=== PATIENT | female | born 1960 | race African-American/Black ===

== ENCOUNTER 2016-11-08 15:34 | Observation (INO) | payer OTHER ==
[2016-11-08] MEDS ORDERED: NORMAL SALINE 1000 ML 1,000 ML IV ONE ×2 (16:26→19:22)
--- NOTE | 2016-11-08 16:29 | ER Document Report ---
ED Medical Screen (RME) - General Chief Complaint: Chest Pain Stated Complaint: CHEST PAIN, SHORTNESS OF BREATH Time Seen by Provider: 11/08/16 16:26 Mode of Arrival: Wheelchair Information source: Patient TRAVEL OUTSIDE OF THE [place] IN LAST 30 DAYS: No - HPI Patient complains to provider of: CP, elevated BS Onset: This morning - pt with h/o IDDM and HTN with elevated BS (over 500 earlier today) and CP earlier today. Has taken ASA already - Related Data Allergies/Adverse Reactions: Penicillins Allergy (Severe, Verified 11/08/16 16:01) shock Past Medical History - Past Medical History Cardiac Medical History: Reports: Hx Hypertension Denies: Hx Coronary Artery Disease, Hx Heart Attack Pulmonary Medical History: Denies: Hx Asthma, Hx Bronchitis, Hx COPD, Hx Pneumonia Neurological Medical History: Denies: Hx Cerebrovascular Accident, Hx Seizures Endocrine Medical History: Reports: Hx Diabetes Mellitus Type 2 Renal/ Medical History: Denies: Hx Peritoneal Dialysis Musculoskeltal Medical History: Reports Hx Arthritis Psychiatric Medical History: Reports: Hx Depression, Hx Post Traumatic Stress Disorder Past Surgical History: Reports: Hx Dilation and Curettage, Hx Tubal Ligation. Denies: Hx Pacemaker - Immunizations Hx Diphtheria, Pertussis, Tetanus Vaccination: Yes Physical Exam - Vital signs Vitals: Temp Pulse Resp BP Pulse Ox 98.2 F 79 16 143/83 H 96 11/08/16 15:57 11/08/16 15:57 11/08/16 15:57 11/08/16 15:57 11/08/16 15:57 Course - Vital Signs Vital signs: Temp Pulse Resp BP Pulse Ox 98.2 F 79 16 143/83 H 96 11/08/16 15:57 11/08/16 15:57 11/08/16 15:57 11/08/16 15:57 11/08/16 15:57 - Laboratory Laboratory results interpreted by me: 11/08/16 15:59 POC Glucose 368 H
[2016-11-08 17:17] LABS: ABSOLUTE EOSINOPHILS # (AUTO) 0.1 10^3/uL (0.0-0.6); ABSOLUTE LYMPHOCYTES (AUTO) 3.9 10^3/uL (0.5-4.7); ABSOLUTE MONOCYTES (AUTO) 0.3 10^3/uL (0.1-1.4); ABSOLUTE NEUT (AUTO) 3.2 10^3/uL (1.7-8.2); BASOPHILS % (AUTO) 0.5 % (0-2); EOSINOPHILS % (AUTO) 1.8 % (0-6); HEMATOCRIT 41.2 % (36.0-47.0); HEMOGLOBIN 13.3 g/dL (12.0-15.5); HGB HCT DIFFERENCE -1.3; LYMPHOCYTES % (AUTO) 51.5 % (13-45); MEAN CORPUSCULAR HEMOGLOBIN 27.6 pg (27.0-33.4); MEAN CORPUSCULAR HGB CONC 32.4 g/dL (32.0-36.0); MEAN CORPUSCULAR VOLUME 85 fl (80-97); MONOCYTES % (AUTO) 4.3 % (3-13); RED BLOOD COUNT 4.84 10^6/uL (3.72-5.28); RED CELL DISTRIBUTION WIDTH 12.7 % (11.5-14.0); SEGMENTED NEUTROPHILS % (AUTO) 41.9 % (42-78); WHITE BLOOD COUNT 7.6 10^3/uL (4.0-10.5)
--- NOTE | 2016-11-08 17:19 | RADIOLOGY REPORT (SQ) ---
EXAM DESCRIPTION: CHEST PA/LAT COMPLETED DATE/TIME: 11/08/2016 5:11 pm REASON FOR STUDY: CP/SOB COMPARISON: None. EXAM PARAMETERS: NUMBER OF VIEWS: two views TECHNIQUE: Digital Frontal and Lateral radiographic views of the chest acquired. RADIATION DOSE: NA LIMITATIONS: none FINDINGS: LUNGS AND PLEURA: No opacities, masses or pneumothorax. No pleural effusion. MEDIASTINUM AND HILAR STRUCTURES: No masses or contour abnormalities. HEART AND VASCULAR STRUCTURES: Heart normal size. No evidence for failure. BONES: No acute findings. HARDWARE: None in the chest. OTHER: No other significant finding. IMPRESSION: NO SIGNIFICANT RADIOGRAPHIC FINDING IN THE CHEST. TECHNICAL DOCUMENTATION: JOB ID: [id number]- All Rights Reserved
[2016-11-08 17:34] LABS: ALANINE AMINOTRANSFERASE 43 U/L (9-52); ALBUMIN 4.7 g/dL (3.5-5.0); ALKALINE PHOSPHATASE 144 U/L (38-126); ANION GAP 14 (5-19); ASPARTATE AMINO TRANSFERASE 20 U/L (14-36); BILIRUBIN,DIRECT 0.3 mg/dL (0.0-0.4); BILIRUBIN,TOTAL 0.6 mg/dL (0.2-1.3); BLOOD UREA NITROGEN 16 mg/dL (7-20); CALCIUM 10.3 mg/dL (8.4-10.2); CARBON DIOXIDE 26 mmol/L (22-30); CHLORIDE 97 mmol/L (98-107); CREATINE KINASE 308 U/L (30-135); GLUCOSE 349 mg/dL (75-110); POTASSIUM 4.3 mmol/L (3.6-5.0); SODIUM 136.6 mmol/L (137-145); TOTAL PROTEIN 7.9 g/dL (6.3-8.2)
[2016-11-08 17:46] LABS: CREATINE KINASE MB 4.61 ng/mL (<4.55)
[2016-11-08 17:50] LABS: TROPONIN I < 0.012 ng/mL
[2016-11-08 18:16] LABS: APPEARANCE,URINE CLEAR; BILIRUBIN,URINE NEGATIVE (NEGATIVE); GLUCOSE, URINE >=500 mg/dL (NEGATIVE); KETONES,URINE NEGATIVE (NEGATIVE); LEUKOCYTE ESTERASE,URINE NEGATIVE (NEGATIVE); NITRITE,URINE NEGATIVE (NEGATIVE); PROTEIN,URINE NEGATIVE (NEGATIVE); URINE SPECIFIC GRAVITY 1.037; UROBILINOGEN,URINE NEGATIVE mg/dL (<2.0)
[2016-11-08] MEDS ORDERED: ASPIRIN 81 MG TABLET, CHEWABLE PO ONE (19:22)
--- NOTE | 2016-11-08 19:24 | ER Document Report ---
ED Cardiac - General Chief Complaint: Chest Pain Stated Complaint: CHEST PAIN, SHORTNESS OF BREATH Time Seen by Provider: 11/08/16 16:26 Mode of Arrival: Wheelchair Notes: Patient is a 55-year-old female who comes emergency department for chief complaint of chest pain, she states that last night she had a sharp chest pain that lasted about 15 minutes, today about 2 PM she had a pressure in her chest that lasted for about 15-20 minutes. Both episodes resolved. She reported some nausea earlier but no vomiting, she states that she felt slightly short of breath at the time. All symptoms resolved. She denies cough, fever, abdominal pain. She states her blood sugar was very elevated today, she took 60 units of long-acting insulin prior to arrival. She also takes Januvia p.o. She has an fixing carpenter. Also has history of hypertension. Denies smoking, personal or family history of heart disease, states she attempted a exercise stress test last year but was unable to complete it. TRAVEL OUTSIDE OF THE [place] IN LAST 30 DAYS: No - Related Data Allergies/Adverse Reactions: Penicillins Allergy (Severe, Verified 11/09/16 01:02) shock Past Medical History - General Information source: Patient - Social History Smoking Status: Never Smoker Drug Abuse: None Lives with: Family Family History: Reviewed & Not Pertinent - Past Medical History Cardiac Medical History: Reports: Hx Hypercholesterolemia, Hx Hypertension Denies: Hx Coronary Artery Disease, Hx Heart Attack Pulmonary Medical History: Denies: Hx Asthma, Hx Bronchitis, Hx COPD, Hx Pneumonia Neurological Medical History: Denies: Hx Cerebrovascular Accident, Hx Seizures Endocrine Medical History: Reports: Hx Diabetes Mellitus Type 2 Renal/ Medical History: Denies: Hx Peritoneal Dialysis Musculoskeltal Medical History: Reports Hx Arthritis Psychiatric Medical History: Reports: Hx Depression, Hx Post Traumatic Stress Disorder Past Surgical History: Reports: Hx Dilation and Curettage, Hx Tubal Ligation. Denies: Hx Pacemaker - Immunizations Hx Diphtheria, Pertussis, Tetanus Vaccination: Yes Hx Pneumococcal Vaccination: 12/01/09 Review of Systems - Review of Systems Constitutional: No symptoms reported EENT: No symptoms reported Cardiovascular: See HPI Respiratory: No symptoms reported Gastrointestinal: No symptoms reported Genitourinary: No symptoms reported Female Genitourinary: No symptoms reported Musculoskeletal: No symptoms reported Skin: No symptoms reported Hematologic/Lymphatic: No symptoms reported Neurological/Psychological: No symptoms reported Physical Exam - Vital signs Vitals: Temp Pulse Resp BP Pulse Ox 98.2 F 79 16 143/83 H 96 11/08/16 15:57 11/08/16 15:57 11/08/16 15:57 11/08/16 15:57 11/08/16 15:57 Interpretation: Normal - General General appearance: Appears well, Alert In distress: None - HEENT Head: Normocephalic, Atraumatic Eyes: Normal Pupils: PERRL - Respiratory Respiratory status: No respiratory distress Chest status: Nontender. No: Tender Breath sounds: Normal. No: Decreased air movement Chest palpation: Normal. No: [place] frothy sputum - Cardiovascular Rhythm: Regular. No: Tachycardia Heart sounds: Normal auscultation, S1 appreciated, S2 appreciated Murmur: No - Abdominal Inspection: Normal Distension: No distension Bowel sounds: Normal Tenderness: Nontender Organomegaly: No organomegaly - Back Back: Normal, Nontender. No: Tender - Extremities General upper extremity: Normal inspection, Nontender, Normal color, Normal ROM , Normal temperature General lower extremity: Normal inspection, Nontender, Normal color, Normal ROM , Normal temperature, Normal weight bearing. No: Edema, Shante's sign - Neurological Neuro grossly intact: Yes Cognition: Normal Orientation: AAOx4 Kennedy Coma Scale Eye Opening: Spontaneous Superior Coma Scale Verbal: Oriented Kennedy Coma Scale Motor: Obeys Commands Superior Coma Scale Total: 15 Speech: Normal Motor strength normal: LUE, RUE, LLE, RLE Sensory: Normal - Psychological Associated symptoms: Normal affect, Normal mood - Skin Skin Temperature: Warm Skin Moisture: Dry Skin Color: Normal Course - Re-evaluation Re-evalutation: Patient took 81 mg of aspirin at home, was not given anything else here, will give the remaining 243 mg of aspirin now. EKG shows sinus rhythm at a rate of 75 with no T-wave inversions or ST segment changes in consecutive leads, Machine reads as normal. Chest x-ray unremarkable. CBC unremarkable. Chemistry showing hyperglycemia with no acidosis, normal renal functioning. Giving additional fluids. Urinalysis shows elevated specific gravity consistent with dehydration. Initial troponin negative, CK and CK-MB slightly elevated. Second troponin pending. 11/09/16 Patient has a heart score of 3, however she has already attempted a stress test this year and this was not completed, she has not well controlled diabetes, she has hypertension, she is 55 years old. She also has had recurrent pain over the past 2 days. She is currently pain-free. Discussed with Dr. Wolfe. Discussed with patient, recommended telemetry observation for additional evaluation, patient is in full agreement with this. Discussed with Dr. Salcedo, internal medicine, patient will be admitted to telemetry observation. - Vital Signs Vital signs: Temp Pulse Resp BP Pulse Ox 98.4 F 79 16 142/80 H 97 11/09/16 03:27 11/09/16 03:27 11/09/16 03:27 11/09/16 03:27 11/09/16 03:27 - Laboratory Result Diagrams: 11/08/16 16:58 11/08/16 16:58 Laboratory results interpreted by me: 11/08/16 11/08/16 11/08/16 15:59 16:58 16:58 Seg Neutrophils % 41.9 L Lymphocytes % 51.5 H Sodium 136.6 L Chloride 97 L Glucose 349 H POC Glucose 368 H Calcium 10.3 H Alkaline Phosphatase 144 H Creatine Kinase 308 H CK-MB (CK-2) Urine Glucose (UA) 11/08/16 11/08/16 11/08/16 16:58 16:58 23:17 Seg Neutrophils % Lymphocytes % Sodium Chloride Glucose POC Glucose 375 H Calcium Alkaline Phosphatase Creatine Kinase CK-MB (CK-2) 4.61 H Urine Glucose (UA) >=500 H 11/08/16 23:28 Seg Neutrophils % Lymphocytes % Sodium Chloride Glucose POC Glucose Calcium Alkaline Phosphatase Creatine Kinase 217 H CK-MB (CK-2) Urine Glucose (UA) Discharge - Discharge Clinical Impression: Hyperglycemia Chest pain Qualifiers: Chest pain type: unspecified Qualified Code(s): R07.9 - Chest pain, unspecified Condition: Stable Disposition: ADMITTED OBSERVATION Admitting Provider: Hospitalist Unit Admitted: Telemetry
--- NOTE | 2016-11-08 19:33 | EKG REPORT ---
SEVERITY:- NORMAL ECG - SINUS RHYTHM : Confirmed by: Jed Krishna MD 08-Nov-2016 19:32:19
[2016-11-08] MEDS ORDERED: GLUCAGON,HUMAN RECOMB 1 MG INJ IM PRN (21:22)
[2016-11-08] MEDS ORDERED: DEXTROSE 40% GEL 15 GM TUBE PO PRN ×2 (21:22)
[2016-11-08] MEDS ORDERED: DEXTROSE 50%-WATER 25 GM/50 ML DISP.SYRIN IV PRN ×2 (21:22)
[2016-11-08] MEDS ORDERED: PROMETHAZINE HCL 25 MG TABLET PO PRN (21:22)
[2016-11-08] MEDS ORDERED: ACETAMINOPHEN 325 MG TABLET PO PRN (21:22)
[2016-11-09] MEDS: INSULIN LISPRO 100 UNIT/ML 3 ML VIAL SUBCUT PRN ×3 (00:42→12:30)
[2016-11-09] MEDS ORDERED: NITROGLYCERIN 0.4 MG/TAB 25 TAB/BOTTLE SL PRN (00:59)
[2016-11-09] MEDS ORDERED: ACETAMINOPHEN 325 MG TABLET PO ONE (01:00)
[2016-11-09] MEDS ORDERED: MAG HYDROX/AL HYDROX/SIMETH SUSP 30 ML UDCUP PO ONE (01:00)
--- NOTE | 2016-11-09 01:08 | PDOC H&P ---
History of Present Illness Admission Date/PCP: 11/08/16 21:[address] Aguilar Endocrinology Dr. Almonte Patient complains of: Chest pain History of Present Illness: MACIEJ JACKMAN is a 55 year old -[place] female with underlying hypertension, type I and type 2 diabetes mellitus, hyperlipidemia, mild anxiety and depression, without suicidal or homicidal ideation, arthritis, and posttraumatic stress disorder who presents to the emergency room for evaluation of above complaint. Patient has been discussed with emergency room nurse practitioner who evaluated the patient. Initial onset of chest pain the evening of the seventh. Sharp in nature, substernal, radiating to her back. Nothing in particular made the pain worse. Resolved on its own. Recurrence of the chest pain, now combination of sharp and pressure quality, approximately 2 PM the day of admission. Notation made in the chart that it lasted only 15-20 minutes. However, discussion with patient at bedside revealed that pain had never really completely resolved since the initial onset. Mild nausea but no vomiting. Slight associated shortness of breath. However, no cough, fever or chills. Patient states she had similar episode of chest pain last October when she suffered a TIA. November 01, 2015, she underwent an incomplete exercise treadmill study, apparently due to tachycardia, with what sounds to be a negative nuclear stress test later that same day. Stress test reports have been requested. Basically a negative cardiac history other than hypertension, with no previous myocardial infarction, congestive heart failure, atrial fibrillation or flutter. No history of pulmonary embolus or DVT. No recent long trip with prolonged inactivity, or unusual lower extremity swelling or tenderness. Negative family history of coronary artery disease. Dictation via voice recognition software. Laboratory results are listed in [facility] and are reviewed. X-ray summary results are listed below, with full report(s) reviewed. . EKG 2 reviewed. Social history/personal habits: single. Has children. 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 Social alcohol use. No tobacco or illicit drug use. Allergies/adverse reactions are listed in [facility] and are reviewed. No problems with Rocephin. Home medications initially autopopulated into [facility] may not accurately reflect patient's true medications, dosages, and/or frequencies. biofuels production technician to reconcile medications. Unfortunately, patient not certain of all medications/dosages/frequencies. REVIEW OF SYSTEMS: Constitutional: No fever or chills. Eyes: Wears glasses. ENT: No swallowing problems or complaints. Denies hearing loss. Pulmonary: See history and present illness. Cardiovascular: See history and present illness. Gastrointestinal: See history and present illness. Skin: No current complaints, including rashes. Hematologic: Denies easy bruising. Neurologic: No current complaints, including numbness or tingling. Musculoskeletal: Joint pain from arthritis. Psychiatric: Mild anxiety and depression. No suicidal or homicidal ideation. Endocrine: No current complaints, including polyuria. Genitourinary: No current complaints, including dysuria. PHYSICAL EXAMINATION: Female floor nurse Nano is present. 2 daughters are present; patient approves. 5 feet 1 inches tall. 66.7 kg. BMI 27.8 kg/m. 98. Pulse 79 and regular. Respirations are 16 and unlabored. 96% saturation on room air. Blood pressure 140/83. Slightly overweight otherwise well-nourished well-developed -[place] female appearing approximately her stated age. Pleasant awake alert and cooperative. No obvious distress other than perhaps mildly anxious. Skin is warm and dry. No grossly obvious evidence of rash in areas of skin examined. No subcutaneous nodules palpated. ENT: Hearing grossly normal to normal conversation. Tongue midline on protrusion pink and slightly moist. Eyes: No scleral icterus. Pupils equal and reactive to light at 4 mm. [place] conjunctivae. Neck is supple and nontender to gentle active range of motion and palpation. Midline trachea. No palpable thyroid nodule mass enlargement or tenderness. Lymphatic: No palpable cervical or clavicular nodes. Neck and lymphatic exams limited by patient body habitus. Psychiatric: Reasonable insight into acute and chronic medical issues. Oriented to time location and why here. Lungs: Auscultation reveals clear and equal breath sounds bilaterally. No use of accessory respiratory muscles. Cardiovascular: Heart regular rate and rhythm, without gallop murmur or rub. No carotid or abdominal aortic bruits. No ankle or pedal edema. Palpable dorsalis pedis pulses. Abdomen:soft slightly distended nontender with positive bowel sounds. Unable to adequately evaluate abdomen for masses or organomegaly due to distention. Compression of neither her upper abdomen nor sternum has any effect on her ongoing chest discomfort. Extremities: Feet are warm and dry. No calf tenderness to compression. No grossly obvious visual evidence of calf swelling. Gentle manipulation of lower extremities fails to reveal any obvious evidence of injury or instability to knees hips or ankles. Neurologic: Moves upper extremities grossly normally. Patellar reflexes absent. Absent Babinski. Light touch is intact at feet. Dorsiflexion and plantarflexion of feet 5 / 5 and symmetric. Past Medical History Cardiac Medical History: Reports: Hyperlipidema, Hypertension Denies: Atrial Fibrillation, Congestive Heart Failure, Coronary Artery Disease, DVT, Myocardial Infarction, Pulmonary Embolism Pulmonary Medical History: Denies: Asthma, Bronchitis, Chronic Obstructive Pulmonary Disease (COPD), Pneumonia, Sleep Apnea EENT Medical History: Reports: Eyes - Glasses Denies: Ears, Throat Neurological Medical History: Denies: Seizures Endocrine Medical History: Reports: Diabetes Mellitus Type 1, Diabetes Mellitus Type 2 Denies: Hyperthyroidism, Hypothyroidism Renal/ Medical History: Reports: None GI Medical History: Denies: Cirrhosis, Gastroesophageal Reflux Disease, Hepatitis, Peptic Ulcer Disease Musculoskeltal Medical History: Reports: Arthritis Skin Medical History: Reports: None Psychiatric Medical History: Reports: Depression, General Anxiety Disorder, Post Traumatic Stress Disorder Denies: Alcohol Dependency, Substance Abuse, Tobacco Dependency Hematology: Denies: Anemia Infectious Medical History: Denies: Hepatitis B, Hepatitis C Past Surgical History Past Surgical History: Reports: Tubal Ligation, Other - Mesh bladder repair Social History Information Source: Patient, Emergency Med Personnel, COUNT [facility]CLUDES [facility] Records Smoking Status: Unknown if Ever Smoked Frequency of Alcohol Use: Social Drugs: None - Advance Directive Resuscitation Status: Full Code Surrogate healthcare decision maker:: Daughter Kelly Family History Family History: Reviewed & Not Pertinent Parental Family History Reviewed: Yes - Father with [place]; mother hypertensive, osteoporosis Children Family History Reviewed: Yes - Asthma Sibling(s) Family History Reviewed.: Yes - Brother hypertensive, and end-stage renal disease Medication/Allergy Home Medications: Aspirin [Ecotrin 81 mg EC Tablet] 81 mg PO DAILY tabec 11/09/16 Cyanocobalamin (Vitamin B-12) [B-12] 1,000 mcg PO DAILY 11/09/16 Insulin Glargine/Lixisenatide [Soliqua 100 Unit-33 Mcg/ml Pen] 60 unit IM DAILY 11/09/16 Losartan Potassium [Cozaar 25 mg Tablet] 25 mg PO DAILY 11/09/16 Multivitamin/Iron/Folic Acid [Centrum Women Tablet] 1 each PO DAILY 11/09/16 Rosuvastatin Calcium [Crestor 20 mg Tablet] 20 mg PO DAILY 11/09/16 Sitagliptin Phosphate [Januvia] 100 mg PO DAILY 11/09/16 Vitamin E Acetate [Vitamin E] 800 unit PO DAILY 11/09/16 Zolpidem Tartrate [Ambien 5 mg Tablet] 2.5 mg PO HSP PRN 11/09/16 Allergies/Adverse Reactions: Penicillins Allergy (Severe, Verified 11/09/16 01:02) shock Physical Exam Vital Signs: Temp Pulse Resp BP Pulse Ox 98.0 F 78 16 140/83 H 96 11/09/16 00:09 11/09/16 00:09 11/09/16 00:09 11/09/16 00:09 11/09/16 00:09 Results Laboratory Results: 11/08/16 11/08/16 23:28 23:28 Creatine Kinase 217 H Troponin I < 0.012 Impressions: Chest X-Ray 11/08/16 16:26 IMPRESSION: NO SIGNIFICANT RADIOGRAPHIC FINDING IN THE CHEST. Assessment & Plan - Diagnosis (1) HTN (hypertension) Qualifiers: Hypertension type: essential hypertension Qualified Code(s): I10 - Essential (primary) hypertension Is this a current diagnosis for this admission?: Yes Plan: Resume home medications as appropriate once these have been determined and reviewed. (2) HLD (hyperlipidemia) Qualifiers: Hyperlipidemia type: unspecified Qualified Code(s): E78.5 - Hyperlipidemia , unspecified Is this a current diagnosis for this admission?: Yes Plan: Resume home medications as appropriate once these have been determined and reviewed. (3) Diabetes mellitus type 2 in nonobese Is this a current diagnosis for this admission?: Yes (4) Diabetes mellitus type 1 Qualifiers: Diabetes mellitus complication status: without complication Qualified Code( s): E10.9 - Type 1 diabetes mellitus without complications Is this a current diagnosis for this admission?: Yes Plan: Diabetic cardiac diet. Accu-Cheks with appropriate sliding scale coverage. Resume home medications as appropriate once these have been determined and reviewed. (5) Chest pain Qualifiers: Chest pain type: unspecified Qualified Code(s): R07.9 - Chest pain, unspecified Is this a current diagnosis for this admission?: Yes Plan: Patient will be placed in observation bed under chest pain protocol. Patient understands to notify staff should chest pain resolve and recur, or if the character or intensity of the discomfort changes. Serial troponin . Repeat EKG. lipid panel. D dimer. I have strongly encouraged patient to be careful getting out of bed, to avoid a fall with injury. Knee high SCDs for DVT prophylaxis, along with subcu Lovenox. Impression and plans were discussed with patient and 2 daughters, all of whom concur. Discussed with day hospitalist. Time spent in evaluation and management of patient: 64 minutes. - Time Time Spent: 50 to 70 Minutes Anticipated discharge: Home Within: within 24 hours
[2016-11-09 06:07] LABS: CHOLESTEROL 165.79 mg/dL (0-200); Direct HDL 41 mg/dL (>40); TRIGLYCERIDES 234 mg/dL (<150)
[2016-11-09 06:18] LABS: DIRECT LDL 91 mg/dL (<100)
[2016-11-09 06:23] LABS: VLDL CHOLESTEROL 46.8 mg/dL (10-31)
--- NOTE | 2016-11-09 06:52 | EKG REPORT ---
SEVERITY:- BORDERLINE ECG - SINUS RHYTHM BORDERLINE T WAVE ABNORMALITIES : Confirmed by: Jed Krishna MD 09-Nov-2016 06:51:55
--- NOTE | 2016-11-09 06:53 | EKG REPORT ---
SEVERITY:- NORMAL ECG - SINUS RHYTHM : Confirmed by: Jed Krishna MD 09-Nov-2016 06:52:03
[2016-11-09] MEDS ORDERED: DOCUSATE SODIUM 100 MG CAPSULE PO SCH (10:00)
[2016-11-09] MEDS ORDERED: ENOXAPARIN SODIUM INJ 40 MG/0.4 ML DISP.SYRIN SUBCUT SCH (10:00)
[2016-11-09] MEDS ORDERED: ASPIRIN 81 MG TABLET, ENT COATED PO SCH (10:00)
[2016-11-09 12:46] VITALS: BP 140/83
--- NOTE | 2016-11-09 14:18 | DISCHARGE SUMMARY E ---
Discharge Summary NAME: MACIEJ JACKMAN : 1960 AGE: 55Y ADMITTED: 11/09/2016 DISCHARGED: 11/09/2016 CODE STATUS: FULL CODE. PRIMARY CARE PROVIDER: Maurice Davis OUTPATIENT DELIVERY REP: Dr. Briggs DISCHARGE DIAGNOSES: 1. Chest pain which has resolved. 2. Hypertriglyceridemia. 3. Diabetes mellitus type 2. 4. Hypertension. 5. Hyperlipidemia. DISCHARGE MEDICATIONS: 1. Aspirin 81 mg p.o. daily. 2. Vitamin B12 at 1000 mcg p.o. daily. 3. Soliqua 100-unit pen 60 units IM daily. 4. Cozaar 25 mg p.o. daily. 5. Centrum Women 1 tablet p.o. daily. 6. Crestor 20 mg p.o. daily. 7. Januvia 100 mg p.o. daily. 8. Vitamin E 800 international units p.o. daily. 9. Ambien 2.5 mg p.o. at hour of sleep. DIET: Heart healthy diabetic as tolerated. ACTIVITY: As tolerated. DIAGNOSTICS: Lab values are as follow: Hematology obtained on 11/08/2016: WBCs are 7.6, hemoglobin is 13.3, hematocrit is 41.2, platelet count is 391,000. Coagulation obtained on 11/09/2016: D-dimer is 0.30. Chemistry obtained on 11/09/2016 reveals sodium of 136, potassium 4.3, chloride 97, carbon dioxide 26, BUN 16, creatinine is 0.70, glucose is 349, calcium is 10.3, bilirubin is 0.6, AST 20, ALT is 43, alk phos 144, CK 308, CK-MB is 4.61, troponin is 0.012, total protein 7.9, albumin 4.7, triglycerides are 234, cholesterol is 165, LDL 91, VLDL is 46, HDL is 41. Urinalysis obtained on 11/08/2016: Color yellow, appearance clear, pH 6.0, specific gravity 1.037, protein negative, glucose 500, ketones negative, occult blood negative, nitrate negative, bilirubin negative, urobilinogen negative, leukocyte esterase negative, WBC 3, RBC 1, bacteria trace, epithelial squamous cells 1, mucous rare, ascorbic acid negative. Chest x-ray obtained on 11/08/2016 reveals no acute radiographic finding of the chest. EKG obtained on 11/08/2016 reveals sinus rhythm. EKG obtained on 11/09/2016 reveals sinus rhythm. PHYSICAL EXAMINATION: GENERAL: On examination, the patient is a well-developed, well-nourished, 55-year-old -[place] female who is awake, alert, and oriented to person, place, time, and situation. She is verbal, conversational, ambulatory, and does not appear to be in any acute distress. VITAL SIGNS: Temperature 98.4, pulse 75, respirations 16, blood pressure 141/81, oxygen saturation is 94% on room air. SKIN: Warm and dry. No rash. Not diaphoretic. HEENT: Pupils equal, round, reactive to light and accommodation. Conjunctivae are pink. There is no JVP. CARDIOVASCULAR: Heart is regular with no murmur or rub. CHEST: Clear, symmetrical, unlabored. ABDOMEN: Soft, nontender, nondistended. BACK: No CVA tenderness or sacral edema. EXTREMITIES: No clubbing, cyanosis, or edema. HISTORY OF PRESENT ILLNESS: The patient is a 55-year-old -Hung[place] female with a past medical history of hypertension and hyperlipidemia. The patient presented to the emergency department with a chief complaint of chest pain. The patient noted initial onset of chest pain the evening of the seventh. It was sharp in nature, substernal, and radiated to her back. Nothing in particular made the pain worse or better and it resolved on its own. The patient did have recurrence of chest pain in combination with a sharp pressure like quality around 1400 hours the day of admission. Notation was made in the chart that it lasted only about 10-15 minutes; however, the patient also stated that this had never really completely resolved. The patient admitted to mild nausea but no vomiting with some slight shortness of breath but no cough, fevers, or chills. The patient had a similar episode last year. The patient underwent what appears to be a negative stress test last year with her rod puller, Dr. Briggs. The patient's initial set of cardiac enzymes were found to be unremarkable. EKG revealed no changes and the patient was referred to the hospitalist for observation and management. HOSPITAL COURSE: The patient was observed in continuous telemetry unit. Serial cardiac enzymes were obtained, all of which were non-suggestive. The patient did have repeat EKG and findings did not reveal any changes. The patient had no events on the panel monitor and no replication of symptoms. The patient's D-dimer was unremarkable and the patient is okay with discharge with the agreeance of following up with her rod puller within the week. Time spent on this discharge including assessment, plan, physical examination, patient education, and review of previous and current records is 35 minutes. DICTATING PHYSICIAN: PAMELA BRADFORD NP [id number] PHY#: [id number] ID: [id number] JOB#: [id number] ACCT: [id number] cc:PAMELA BRADFORD NP, FRANCIS M.D. >
== END 2016-11-09 13:51 | disposition home or self-care (01) ==
LOC: ER 15:34 → EH 21:20 → UNDOADMOB 21:20 → EH 23:11 → 5 23:11 → EH 11-09 00:43 → UNDOADMOB 11-09 01:39 → 5 11-09 01:39
PROVIDERS: ADMIT Family Medicine; ATTEND Family Medicine
DX: R07.9 Chest pain, unspecified (principal); E78.1 Pure hyperglyceridemia; E11.9 Type 2 diabetes mellitus without complications; I10 Essential (primary) hypertension; E78.5 Hyperlipidemia, unspecified; F41.9 Anxiety disorder, unspecified; F32.9 Major depressive disorder, single episode, unspecified; F43.10 Post-traumatic stress disorder, unspecified; R06.02 Shortness of breath; Z86.73 Personal history of transient ischemic attack (TIA), and cerebral infarction without residual deficits; Z79.84 Long term (current) use of oral hypoglycemic drugs; Z79.82 Long term (current) use of aspirin
CPT/HCPCS: 93005 ×2; 99285; 96360; 36415 ×2; 82553; 82962 ×2; 82550; 85025; 80053; 81001; 84484 ×2; 85379; 80061; 71020; 93010 ×2; G0378 ×2; J1815; J3490; J7030

== ENCOUNTER 2018-05-21 15:08 | Emergency (ER) | payer BC, OTHER ==
[2018-05-21] MEDS ORDERED: ADENOSINE INJ/PF 6 MG/2 ML SDV IV ONE (15:23)
[2018-05-21] MEDS ORDERED: ASPIRIN 81 MG TABLET, CHEWABLE PO ONE (15:28)
[2018-05-21] MEDS ORDERED: NORMAL SALINE 1000 ML 1,000 ML IV ONE ×2 (15:31→16:48)
--- NOTE | 2018-05-21 15:33 | ER Document Report ---
ED Cardiac - General Chief Complaint: Shortness Of Breath Stated Complaint: CHEST PAIN Time Seen by Provider: 05/21/18 15:30 Primary Care Provider: SAMUEL WASSERMAN DO [NO LOCAL MD] - Follow up as needed Mode of Arrival: Stretcher Information source: Patient TRAVEL OUTSIDE OF THE [place] IN LAST 30 DAYS: No - HPI Patient complains to provider of: Chest pain, Palpitations Was the onset of pain: Sudden Is the pain a: New problem Chest pain location: Substernal Quality of pain: Pressure Severity now: Severe Severity at worst: Severe Pain level currently: 5 Chest pain precipitating factors: At Rest Cardiac risk factors: Diabetes, Hypertension Positive cardiac history: No Associated symptoms: Palpitations, Shortness of breath Exacerbated by: Denies Relieved by: Nothing Similar symptoms previously: No Recently seen / treated by doctor: No Notes: Patient is a 57-year-old female with a history of hypertension and diabetes presenting to the emergency room via EMS for complaints of chest pain with shortness of breath and rapid heart rate, patient noted to be in SVT on arrival, nursing staff called me to the room immediately, an IV was placed and EKG was performed to confirm SVT and adenosine 6 mg was given, patient denies a history of SVT previously, she reports the rest of the day was relatively normal until this started approximately 30 minutes prior to coming to the emergency department, she denies any nausea or vomiting she denies any fever or chills, no increased stimulant or caffeine consumption - Related Data Allergies/Adverse Reactions: Penicillins Allergy (Severe, Verified 11/09/16 01:02) shock Past Medical History - General Information source: Patient - Social History Smoking Status: Never Smoker Family History: Reviewed & Not Pertinent - Past Medical History Cardiac Medical History: Reports: Hx Hypercholesterolemia, Hx Hypertension Denies: Hx Atrial Fibrillation, Hx Congestive Heart Failure, Hx Coronary Artery Disease, Hx DVT, Hx Heart Attack, Hx Pulmonary Embolism Pulmonary Medical History: Denies: Hx Asthma, Hx Bronchitis, Hx COPD, Hx Pneumonia, Hx Sleep Apnea Neurological Medical History: Denies: Hx Cerebrovascular Accident, Hx Seizures Endocrine Medical History: Reports: Hx Diabetes Mellitus Type 1, Hx Diabetes Mellitus Type 2. Denies: Hx Hyperthyroidism, Hx Hypothyroidism Renal/ Medical History: Denies: Hx Peritoneal Dialysis GI Medical History: Denies: Hx Cirrhosis, Hx Gastroesophageal Reflux Disease, Hx Hepatitis Musculoskeletal Medical History: Reports Hx Arthritis Psychiatric Medical History: Reports: Hx Depression, Hx Post Traumatic Stress Disorder Infectious Medical History: Denies: Hx Hepatitis Past Surgical History: Reports: Hx Dilation and Curettage, Hx Tubal Ligation, Other - Mesh bladder repair. Denies: Hx Pacemaker - Immunizations Hx Diphtheria, Pertussis, Tetanus Vaccination: Yes Hx Pneumococcal Vaccination: 12/01/09 Review of Systems - Review of Systems Constitutional: No symptoms reported EENT: No symptoms reported Cardiovascular: See HPI Respiratory: No symptoms reported Gastrointestinal: No symptoms reported Genitourinary: No symptoms reported Female Genitourinary: No symptoms reported Musculoskeletal: No symptoms reported Skin: No symptoms reported Hematologic/Lymphatic: No symptoms reported Neurological/Psychological: No symptoms reported -: Yes All other systems reviewed and negative Physical Exam - Vital signs Vitals: Pulse Ox 100 05/21/18 15:19 Interpretation: Tachycardic - General General appearance: Alert In distress: Moderate - HEENT Head: Normocephalic, Atraumatic Eyes: Normal Pupils: PERRL - Respiratory Respiratory status: No respiratory distress Chest status: Nontender Breath sounds: Normal Chest palpation: Normal - Cardiovascular Rhythm: Regular, Tachycardia Heart sounds: Normal auscultation Murmur: No - Abdominal Inspection: Normal Distension: No distension Bowel sounds: Normal Tenderness: Nontender Organomegaly: No organomegaly - Back Back: Normal, Nontender - Extremities General upper extremity: Normal inspection, Nontender, Normal color, Normal ROM, Normal temperature General lower extremity: Normal inspection, Nontender, Normal color, Normal ROM, Normal temperature, Normal weight bearing. No: Shante's sign - Neurological Neuro grossly intact: Yes Cognition: Normal Orientation: AAOx4 [place] Coma Scale Eye Opening: Spontaneous [place] Coma Scale Verbal: Oriented [place] Coma Scale Motor: Obeys Commands [place] Coma Scale Total: 15 Speech: Normal Motor strength normal: LUE, RUE, LLE, RLE Sensory: Normal - Psychological Associated symptoms: Normal affect, Normal mood - Skin Skin Temperature: Warm Skin Moisture: Dry Skin Color: Normal Course - Re-evaluation Re-evalutation: 05/21/18 21:03 Patient resting comfortably, reports feeling much better, heart rate is 90, she is no longer having chest pain and feels well enough to be discharged home, patient reports she has a industrial spray painter in [place], Dr. Aguilar and she will follow-up in the next 1-2 days, she was advised to return if symptoms worsen or any additional concerns, patient acknowledges understanding and agreement with this plan - Vital Signs Vital signs: Temp Pulse Resp BP Pulse Ox 18 147/81 H 97 05/21/18 20:01 05/21/18 20:01 05/21/18 20:01 - Laboratory Result Diagrams: 05/21/18 14:50 05/21/18 14:50 Laboratory results interpreted by me: 05/21/18 05/21/18 14:50 14:50 Plt Count 505 H Seg Neuts % (Manual) 30 L Lymphocytes % (Manual) 59 H Monocytes % (Manual) 2 L Abs Lymphs (Manual) 6.1 H Glucose 152 H Calcium 10.3 H Alkaline Phosphatase 153 H Creatine Kinase 357 H - Diagnostic Test Radiology reviewed: Image reviewed, Reports reviewed - EKG Interpretation by Me Rate: Tachycardia Rhythm: SVT Additional EKG results interpreted by me: 05/21/18 21:06 Second EKG dated 05/21 2019 x 1528 shows sinus tachycardia at a rate of 117 with no acute abnormalities 05/21/18 22:15 EKG #3 dated 05/20 119 x 2112 reveals sinus rhythm rate of 90 with no acute findings, normal intervals, normal axis, no acute ST elevation or depressions Critical Care Note - Critical Care Note Total time excluding time spent on procedures (mins): 35 Comments: Patient arrived in SVT with a heart rate of 198- 200, requiring adenosine for cardioversion, close observation and multiple re-evaluations Discharge - Discharge Clinical Impression: Supraventricular tachycardia Condition: Stable Disposition: HOME, SELF-CARE Instructions: Paroxysmal Supraventricular Tachycardia ([facility]) Additional Instructions: Follow up with your primary care provider in one to 2 days. Return to the emergency room immediately if symptoms worsen or any additional concerns. Forms: Parent Work Note, Return to Work Referrals: SAMUEL WASSERMAN DO [NO LOCAL MD] - Follow up as needed
[2018-05-21 15:38] LABS: HEMATOCRIT 38.6 % (36.0-47.0); HEMOGLOBIN 13.1 g/dL (12.0-15.5); MEAN CORPUSCULAR HEMOGLOBIN 27.9 pg (27.0-33.4); MEAN CORPUSCULAR VOLUME 82 fl (80-97); PLATELET COUNT 505 10^3/uL (150-450); RED BLOOD COUNT 4.71 10^6/uL (3.72-5.28); RED CELL DISTRIBUTION WIDTH 13.3 % (11.5-14.0); WHITE BLOOD COUNT 9.4 10^3/uL (4.0-10.5)
[2018-05-21 15:55] LABS: ALANINE AMINOTRANSFERASE 45 U/L (9-52); ALBUMIN 4.4 g/dL (3.5-5.0); ALKALINE PHOSPHATASE 153 U/L (38-126); ANION GAP 15 (5-19); ASPARTATE AMINO TRANSFERASE 23 U/L (14-36); BILIRUBIN,DIRECT 0.2 mg/dL (0.0-0.4); BILIRUBIN,TOTAL 0.4 mg/dL (0.2-1.3); BLOOD UREA NITROGEN 19 mg/dL (7-20); CALCIUM 10.3 mg/dL (8.4-10.2); CARBON DIOXIDE 25 mmol/L (22-30); CHLORIDE 101 mmol/L (98-107); CREATINE KINASE 357 U/L (30-135); GLUCOSE 152 mg/dL (75-110); POTASSIUM 3.8 mmol/L (3.6-5.0); SODIUM 140.5 mmol/L (137-145); TOTAL PROTEIN 7.7 g/dL (6.3-8.2)
[2018-05-21 16:03] LABS: ABSOLUTE LYMPHOCYTES# (MANUAL) 6.1 10^3/uL (0.5-4.7); ABSOLUTE MONOCYTES # (MANUAL) 0.2 10^3/uL (0.1-1.4); ABSOLUTE NEUTROPHILS# (MANUAL) 2.8 10^3/uL (1.7-8.2); BASOPHILS % (MANUAL) 0 % (0-2); EOSINOPHILS % (MANUAL) 3 % (0-6); LYMPHOCYTES % (MANUAL) 59 % (13-45); MONOCYTES % (MANUAL) 2 % (3-13); SEGMENTED NEUTROPHILS % (MAN) 30 % (42-78); TOTAL CELLS COUNTED 100
[2018-05-21 16:04] LABS: PLATELET COMMENT INCREASED
[2018-05-21 16:06] LABS: BURR CELLS SLIGHT; OVALOCYTES SLIGHT
[2018-05-21 16:07] LABS: CREATINE KINASE MB 3.76 ng/mL (<4.55); TROPONIN I < 0.012 ng/mL
--- NOTE | 2018-05-21 16:11 | RADIOLOGY REPORT (SQ) ---
EXAM DESCRIPTION: CHEST SINGLE VIEW COMPLETED DATE/TIME: 05/21/2018 4:01 pm REASON FOR STUDY: INCREASED HEART RATE COMPARISON: 11/08/2016 chest film EXAM PARAMETERS: NUMBER OF VIEWS: One view. TECHNIQUE: Single frontal radiographic view of the chest acquired. RADIATION DOSE: NA LIMITATIONS: None. FINDINGS: LUNGS AND PLEURA: No opacities, masses or pneumothorax. No pleural effusion. MEDIASTINUM AND HILAR STRUCTURES: No masses. Contour normal. HEART AND VASCULAR STRUCTURES: Heart normal in size. Normal vasculature. BONES: No acute findings. HARDWARE: None in the chest. OTHER: No other significant finding. IMPRESSION: NO ACUTE RADIOGRAPHIC FINDING IN THE CHEST. TECHNICAL DOCUMENTATION: JOB ID: [id number] [employer]- All Rights Reserved Reading location - IP/workstation name: [email or web address]
[2018-05-21] MEDS ORDERED: METOPROLOL TARTRATE PF/INJ 5 MG/5 ML SDV IV ONE (18:37)
[2018-05-21] MEDS ORDERED: MORPHINE SULFATE 10 MG/ML INJ IV ONE (19:58)
[2018-05-21 20:14] VITALS: BP 147/81
--- NOTE | 2018-05-21 22:57 | EKG REPORT ---
SEVERITY:- ABNORMAL ECG - SUPRAVENTRICULAR TACHYCARDIA REPOLARIZATION ABNORMALITY, PROB RATE RELATED : Confirmed by: Earl Bingham 21-May-2018 22:57:15
--- NOTE | 2018-05-21 22:57 | EKG REPORT ---
SEVERITY:- ABNORMAL ECG - SINUS TACHYCARDIA NONSPECIFIC REPOL ABNORMALITY, DIFFUSE LEADS : Confirmed by: Earl Bingham 21-May-2018 22:57:00
--- NOTE | 2018-05-21 22:57 | EKG REPORT ---
SEVERITY:- NORMAL ECG - SINUS RHYTHM : Confirmed by: Earl Bingham 21-May-2018 22:56:46
== END 2018-05-21 21:54 | disposition home or self-care (01) ==
LOC: ER 15:08
DX: R06.02 Shortness of breath (principal); R07.9 Chest pain, unspecified; R00.2 Palpitations; I47.1 Supraventricular tachycardia; E78.00 Pure hypercholesterolemia, unspecified; I10 Essential (primary) hypertension; E11.9 Type 2 diabetes mellitus without complications; Z88.0 Allergy status to penicillin; Z98.51 Tubal ligation status
CPT/HCPCS: 93005; 99291; 96360; 36415; 82553; 82550; 85025; 80053; 84484; 71045; 93010; J3490; J2270; J7030; J0153

== ENCOUNTER 2018-09-18 12:03 | Emergency (ER) | payer BC ==
--- NOTE | 2018-09-18 13:15 | ER Document Report ---
ED Medical Screen (RME) - General Chief Complaint: Chest Pain Stated Complaint: CHEST PAIN Time Seen by Provider: 09/18/18 13:04 TRAVEL OUTSIDE OF THE [place] IN LAST 30 DAYS: No - HPI Notes: 09/18/18 13:13 Patient is a 57-year-old female with a history of hypertension, diabetes, episode of SVT in May who presents complaining of feeling midsternal chest pain that would radiate to the right arm that began last night after she got home from work. Patient states that she does feel occasional shortness of breath with, but her symptoms have significantly improved and are "mild" now. She is able to eat and drink without difficulty. She is urinating normally and having normal bowel movements. Denies any prolonged immobilization, distance travel, recent surgery/trauma, personal cancer history, hormone use, smoking, or previous DVT/PE. Denies KENT, fever, neck pain, URI, n/v/d, Abd pain, dysuria, back pain, or rash. I have treated and performed a rapid initial assessment of this patient. A comprehensive ED assessment and evaluation of the patient, analysis of test results and completion of medical decision making process will be conducted by additional ED providers. PHYSICAL EXAMINATION: GENERAL: Well-appearing, well-nourished and in no acute distress. A&Ox4. Answers questions appropriately. LUNGS: Breath sounds clear to auscultation bilaterally and equal. No wheezes rales or rhonchi. HEART: Regular rate and rhythm without murmurs, rubs, gallops. Extremities: No cyanosis, clubbing, or edema b/l. Shante negative bilaterally. No lower extremity asymmetry. NEUROLOGICAL: Normal speech, normal gait. PSYCH: Normal mood, normal affect. - Related Data Allergies/Adverse Reactions: Penicillins Allergy (Severe, Verified 09/18/18 12:06) shock metformin Allergy (Verified 09/18/18 12:06) Past Medical History - Past Medical History Cardiac Medical History: Reports: Hx Hypercholesterolemia, Hx Hypertension Denies: Hx Atrial Fibrillation, Hx Congestive Heart Failure, Hx Coronary Artery Disease, Hx DVT, Hx Heart Attack, Hx Pulmonary Embolism Pulmonary Medical History: Denies: Hx Asthma, Hx Bronchitis, Hx COPD, Hx Pneumonia, Hx Sleep Apnea Neurological Medical History: Denies: Hx Cerebrovascular Accident, Hx Seizures Endocrine Medical History: Reports: Hx Diabetes Mellitus Type 1, Hx Diabetes Mellitus Type 2. Denies: Hx Hyperthyroidism, Hx Hypothyroidism Renal/ Medical History: Denies: Hx Peritoneal Dialysis GI Medical History: Denies: Hx Cirrhosis, Hx Gastroesophageal Reflux Disease, Hx Hepatitis Musculoskeltal Medical History: Reports Hx Arthritis Psychiatric Medical History: Reports: Hx Depression, Hx Post Traumatic Stress Disorder Infectious Medical History: Denies: Hx Hepatitis Past Surgical History: Reports: Hx Dilation and Curettage, Hx Tubal Ligation, Other - Mesh bladder repair. Denies: Hx Pacemaker - Immunizations Hx Diphtheria, Pertussis, Tetanus Vaccination: Yes Physical Exam - Vital signs Vitals: Temp Pulse Resp BP Pulse Ox 98.4 F 78 16 150/79 H 96 09/18/18 12:19 09/18/18 12:19 09/18/18 12:19 09/18/18 12:19 09/18/18 12:19 Course - Vital Signs Vital signs: Temp Pulse Resp BP Pulse Ox 98.4 F 78 16 150/79 H 96 09/18/18 12:19 09/18/18 12:19 09/18/18 12:19 09/18/18 12:19 09/18/18 12:19
[2018-09-18 13:43] LABS: ABSOLUTE EOSINOPHILS # (AUTO) 0.2 10^3/uL (0.0-0.6); ABSOLUTE LYMPHOCYTES (AUTO) 3.7 10^3/uL (0.5-4.7); ABSOLUTE MONOCYTES (AUTO) 0.3 10^3/uL (0.1-1.4); BASOPHILS % (AUTO) 0.5 % (0-2); EOSINOPHILS % (AUTO) 2.7 % (0-6); HEMATOCRIT 40.2 % (36.0-47.0); HEMOGLOBIN 13.3 g/dL (12.0-15.5); LYMPHOCYTES % (AUTO) 50.6 % (13-45); MEAN CORPUSCULAR HEMOGLOBIN 27.6 pg (27.0-33.4); MEAN CORPUSCULAR VOLUME 84 fl (80-97); MONOCYTES % (AUTO) 4.7 % (3-13); PLATELET COUNT 457 10^3/uL (150-450); RED BLOOD COUNT 4.81 10^6/uL (3.72-5.28); RED CELL DISTRIBUTION WIDTH 13.4 % (11.5-14.0); SEGMENTED NEUTROPHILS % (AUTO) 41.5 % (42-78); TOTAL CELLS COUNTED % (AUTO) 100 %; WHITE BLOOD COUNT 7.3 10^3/uL (4.0-10.5)
--- NOTE | 2018-09-18 13:46 | EKG REPORT ---
SEVERITY:- NORMAL ECG - SINUS RHYTHM : Confirmed by: Jed Krishna MD 18-Sep-2018 13:45:53
[2018-09-18 13:58] LABS: ALANINE AMINOTRANSFERASE 28 U/L (9-52); ALBUMIN 4.8 g/dL (3.5-5.0); ALKALINE PHOSPHATASE 139 U/L (38-126); ANION GAP 8 (5-19); ASPARTATE AMINO TRANSFERASE 18 U/L (14-36); BILIRUBIN,DIRECT 0.1 mg/dL (0.0-0.4); BILIRUBIN,TOTAL 0.4 mg/dL (0.2-1.3); BLOOD UREA NITROGEN 11 mg/dL (7-20); CARBON DIOXIDE 28 mmol/L (22-30); CHLORIDE 105 mmol/L (98-107); GLUCOSE 108 mg/dL (75-110); POTASSIUM 4.3 mmol/L (3.6-5.0); SODIUM 141.4 mmol/L (137-145)
[2018-09-18 14:10] LABS: NT PRO BNP 15 pg/mL (5-900)
[2018-09-18 14:12] LABS: TROPONIN I < 0.012 ng/mL
--- NOTE | 2018-09-18 14:12 | RADIOLOGY REPORT (SQ) ---
EXAM DESCRIPTION: CHEST 2 VIEWS COMPLETED DATE/TIME: 09/18/2018 1:46 pm REASON FOR STUDY: CP COMPARISON: 05/21/2018 EXAM PARAMETERS: NUMBER OF VIEWS: two views TECHNIQUE: Digital Frontal and Lateral radiographic views of the chest acquired. RADIATION DOSE: NA LIMITATIONS: none FINDINGS: LUNGS AND PLEURA: No opacities, masses or pneumothorax. No pleural effusion. MEDIASTINUM AND HILAR STRUCTURES: No masses or contour abnormalities. HEART AND VASCULAR STRUCTURES: Heart normal size. No evidence for failure. BONES: No acute findings. HARDWARE: None in the chest. OTHER: No other significant finding. IMPRESSION: NO ACUTE RADIOGRAPHIC FINDING IN THE CHEST. TECHNICAL DOCUMENTATION: JOB ID: [id number] [employer]- All Rights Reserved Reading location - IP/workstation name: [email or web address]
[2018-09-18] MEDS ORDERED: MORPHINE SULFATE 10 MG/ML INJ IV ONE (17:52)
[2018-09-18] MEDS ORDERED: ONDANSETRON HCL INJ/PF 4 MG/2 ML SDV IV ONE (17:52)
--- NOTE | 2018-09-18 17:54 | ER Document Report ---
ED General - General Chief Complaint: Chest Pain Stated Complaint: CHEST PAIN Time Seen by Provider: 09/18/18 13:04 Mode of Arrival: Ambulatory Information source: Patient, Relative, [facility] Records Notes: 57-year-old female with hypertension, hyperlipidemia, type 1 diabetes, degenerative disc disease presents with multiple vague complaints including chest pain , shortness of breath, diarrhea, fatigue, bilateral paresthesias in the lower extremities. Patient's diarrhea started 2 days prior to arrival and has resolved. Her chest pain and shortness of breath started yesterday evening when she arrived home from work. She describes her chest pain as pressure that is associated with shortness of breath. Patient reports shortness of breath and palpitations with laying flat. Patient's paresthesias have been intermittent for several months and was in her left arm and right leg but is now only in her left foot. Patient also complaining of a frontal headache. TRAVEL OUTSIDE OF THE [place] IN LAST 30 DAYS: No - HPI Onset: Yesterday Onset/Duration: Gradual, Persistent Quality of pain: Pressure, Throbbing Severity: Mild Pain Level: 2 Associated symptoms: Chest pain, Diarrhea, Headache, Nausea, Shortness of breath. denies: Fever, Leg swelling, Vomiting, Sweating Exacerbated by: Supine, Movement Relieved by: Remaining still Similar symptoms previously: Yes Recently seen / treated by doctor: No - Related Data Allergies/Adverse Reactions: Penicillins Allergy (Severe, Verified 09/18/18 12:06) shock metformin Allergy (Verified 09/18/18 12:06) Past Medical History - General Information source: Patient - Social History Smoking Status: Never Smoker Frequency of alcohol use: Social Drug Abuse: None Lives with: Family Family History: Reviewed & Not Pertinent Patient has suicidal ideation: No Patient has homicidal ideation: No - Past Medical History Cardiac Medical History: Reports: Hx Hypercholesterolemia, Hx Hypertension Denies: Hx Atrial Fibrillation, Hx Congestive Heart Failure, Hx Coronary Artery Disease, Hx DVT, Hx Heart Attack, Hx Pulmonary Embolism Pulmonary Medical History: Denies: Hx Asthma, Hx Bronchitis, Hx COPD, Hx Pneumonia, Hx Sleep Apnea Neurological Medical History: Denies: Hx Cerebrovascular Accident, Hx Seizures Endocrine Medical History: Reports: Hx Diabetes Mellitus Type 1, Hx Diabetes Mellitus Type 2. Denies: Hx Hyperthyroidism, Hx Hypothyroidism Renal/ Medical History: Denies: Hx Peritoneal Dialysis GI Medical History: Denies: Hx Cirrhosis, Hx Gastroesophageal Reflux Disease, Hx Hepatitis Musculoskeletal Medical History: Reports Hx Arthritis Psychiatric Medical History: Reports: Hx Depression, Hx Post Traumatic Stress Disorder Infectious Medical History: Denies: Hx Hepatitis Past Surgical History: Reports: Hx Dilation and Curettage, Hx Tubal Ligation, Other - Mesh bladder repair. Denies: Hx Pacemaker - Immunizations Hx Diphtheria, Pertussis, Tetanus Vaccination: Yes Hx Pneumococcal Vaccination: 12/01/09 Review of Systems - Review of Systems Constitutional: Malaise, Recent illness EENT: denies: Throat pain Cardiovascular: Chest pain, Palpitations, Dyspnea. denies: Dizziness, Lightheaded, Edema Respiratory: Short of breath. denies: Cough, Hurts to breathe, Wheezing Gastrointestinal: Diarrhea, Nausea. denies: Abdominal pain, Vomiting Genitourinary: denies: Dysuria Female Genitourinary: No symptoms reported Musculoskeletal: denies: Leg swelling, Ankle swelling Skin: denies: Rash Hematologic/Lymphatic: No symptoms reported Neurological/Psychological: Headaches, Numbness. denies: Confusion, Weakness, Speech impairment -: Yes All other systems reviewed and negative Physical Exam - Vital signs Vitals: Temp Pulse Resp BP Pulse Ox 98.4 F 78 16 150/79 H 96 09/18/18 12:19 09/18/18 12:19 09/18/18 12:19 09/18/18 12:19 09/18/18 12:19 - Notes Notes: PHYSICAL EXAMINATION: GENERAL: Well-appearing, well-nourished and in no acute distress. HEAD: Atraumatic, normocephalic. EYES: Pupils equal round and reactive to light, extraocular movements intact, conjunctiva are normal. ENT: Nares patent, oropharynx clear without exudates. Moist mucous membranes. NECK: Normal range of motion, supple without lymphadenopathy LUNGS: Breath sounds clear to auscultation bilaterally and equal. No wheezes rales or rhonchi. HEART: Regular rate and rhythm without murmurs ABDOMEN: Soft, nontender, nondistended abdomen. No guarding, no rebound. No masses appreciated. Female : deferred Musculoskeletal: Normal range of motion, no pitting or edema. No cyanosis. NEUROLOGICAL: Mental status; alert and oriented x3. Cranial nerves II through XII intact. Sensation intact to sharp/dull differentiation in all extremities. Motor; normal tone. No abnormal movements appreciated. No pronator drift. Strength tested and 5/5 in bilateral wrist flexion/extension, elbow flexion/extension, shoulder abduction, straight leg raise, knee flex ion/extension, ankle dorsiflexion/plantar flexion. Patient ambulates with a steady gait. Coordination; no ataxia. Finger to nose and heel to paulino testing intact bilaterally.Reflexes; brachial radialis, biceps, and patellar reflexes within normal limits and symmetric bilaterally. Babinski with downgoing toes bilaterally. NIH 0 PSYCH: Normal mood, normal affect. SKIN: Warm, Dry, normal turgor, no rashes or lesions noted. Course - Re-evaluation Re-evalutation: 09/18/18 19:36 Laboratory 09/18/18 09/18/18 09/18/18 13:29 13:29 13:29 WBC 7.3 RBC 4.81 Hgb 13.3 Hct 40.2 MCV 84 MCH 27.6 MCHC 33.0 RDW 13.4 Plt Count 457 H Seg Neutrophils % 41.5 L Lymphocytes % 50.6 H Monocytes % 4.7 Eosinophils % 2.7 Basophils % 0.5 Absolute Neutrophils 3.0 Absolute Lymphocytes 3.7 Absolute Monocytes 0.3 Absolute Eosinophils 0.2 Absolute Basophils 0.0 Sodium 141.4 Potassium 4.3 Chloride 105 Carbon Dioxide 28 Anion Gap 8 BUN 11 Creatinine 0.65 Est GFR ( Amer) > 60 Est GFR (Non-Af Amer) > 60 Glucose 108 Calcium 10.0 Total Bilirubin 0.4 Direct Bilirubin 0.1 Neonat Total Bilirubin Not Reportable Neonat Direct Bilirubin Not Reportable Neonat Indirect Bili Not Reportable AST 18 ALT 28 Alkaline Phosphatase 139 H Troponin I < 0.012 NT-Pro-B Natriuret Pep 15 Total Protein 8.0 Albumin 4.8 09/18/18 17:34 WBC RBC Hgb Hct MCV MCH MCHC RDW Plt Count Seg Neutrophils % Lymphocytes % Monocytes % Eosinophils % Basophils % Absolute Neutrophils Absolute Lymphocytes Absolute Monocytes Absolute Eosinophils Absolute Basophils Sodium Potassium Chloride Carbon Dioxide Anion Gap BUN Creatinine Est GFR ( Amer) Est GFR (Non-Af Amer) Glucose Calcium Total Bilirubin Direct Bilirubin Neonat Total Bilirubin Neonat Direct Bilirubin Neonat Indirect Bili AST ALT Alkaline Phosphatase Troponin I < 0.012 NT-Pro-B Natriuret Pep Total Protein Albumin Chest X-Ray 09/18/18 13:15 IMPRESSION: NO ACUTE RADIOGRAPHIC FINDING IN THE CHEST. Head CT 09/18/18 17:52 IMPRESSION: NO ACUTE INTRACRANIAL FINDINGS. EVIDENCE OF ACUTE STROKE: NO. Chest/Abdomen CTA 09/18/18 17:54 IMPRESSION: No acute findings. No emboli visualized in the main pulmonary arteries or the segmental branches. Temp Pulse Resp BP Pulse Ox 98.4 F 78 14 140/76 H 96 09/18/18 12:19 09/18/18 12:19 09/18/18 18:01 09/18/18 18:01 09/18/18 12:19 09/19/18 18:32 57-year-old female with hypertension, hyperlipidemia, type 1 diabetes, degenerative disc disease presents with multiple vague complaints including chest pain , shortness of breath, diarrhea, fatigue, bilateral paresthesias in the lower extremities. Patient's diarrhea started 2 days prior to arrival and has resolved. Her chest pain and shortness of breath started yesterday evening when she arrived home from work. She describes her chest pain as pressure that is associated with shortness of breath. Patient reports shortness of breath and palpitations with laying flat. Patient's paresthesias have been intermittent for several months and was in her left arm and right leg but is now only in her left foot. Patient also complaining of a frontal headache. Patient has a completely benign work-up which included CT of the head which showed no evidence of stroke, CTA of the chest which showed no evidence of PE and chest x-ray which showed no evidence of pneumonia. Patient is neurologically intact. no evidence of ACS. Patient was evaluated and treated as appropriate for the patient's presenting symptoms and complaint, with consideration of any critical or life threatening conditions that may be associated with their obtained history and exam as noted above. All results were discussed with patient and Her family who is at the bedside patient provided the opportunity to ask questions, and express concerns. Patient was educated on treatments based on their presumed diagnosis as noted above. At this time we will discharge the patient with return precautions and follow-up recommendations. Verbal discharge instructions given a the bedside. Medication warnings reviewed. Patient is in agreement with this plan and has verbalized understanding of return precautions. After careful consideration I feel that that patient can be safely discharged from the emergency department, they were advised to followup with a primary care physician in 2-3 days. Dictation on this chart was performed using voice recognition software and may result in unintended grammatical, spelling, syntax or errors. - Vital Signs Vital signs: Temp Pulse Resp BP Pulse Ox 98.4 F 78 16 137/76 H 99 09/18/18 12:19 09/18/18 12:19 09/18/18 20:01 09/18/18 20:01 09/18/18 19:01 - Laboratory Result Diagrams: 09/18/18 13:29 09/18/18 13:29 Laboratory results interpreted by me: 09/18/18 09/18/18 13:29 13:29 Plt Count 457 H Seg Neutrophils % 41.5 L Lymphocytes % 50.6 H Alkaline Phosphatase 139 H - Diagnostic Test Radiology reviewed: Image reviewed, Reports reviewed - EKG Interpretation by Me EKG shows normal: Sinus rhythm Rate: Normal Rhythm: NSR When compared to previous EKG there are: No significant change Discharge - Discharge Clinical Impression: Intermittent paresthesia of hand and foot Chest pain Qualifiers: Chest pain type: unspecified Qualified Code(s): R07.9 - Chest pain, unspecified Dyspnea Qualifiers: Dyspnea type: unspecified Qualified Code(s): R06.00 - Dyspnea, unspecified HTN (hypertension) Qualifiers: Hypertension type: unspecified Qualified Code(s): I10 - Essential (primary) hypertension Headache Qualifiers: Headache type: unspecified Headache chronicity pattern: unspecified pattern Intractability: not intractable Qualified Code(s): R51 - Headache Condition: Good Disposition: HOME, SELF-CARE Instructions: Chest Pain of Unclear Cause ([facility]), Dyspnea, Nonspecific ([facility]), He adache ([facility]), Numbness or Paresthesia ([facility]) Additional Instructions: You were seen today for chest pain. The exact cause of your pain is unclear. However, based on your cardiac enzyme testing, chest x-ray, and EKG it does not appear that it is from an immediately life-threatening cause at this time. Although your testing here is normal is critical that you follow-up with your primary care physician for continued evaluation of this chest pain and possible stress testing. I recommended you see your physician within the next 24-48 hours to be evaluated for consideration of a stress test. Please return to emergency department immediately if you have worsening of your chest pain, shortness of breath, vomiting, become unable to exert yourself due to pain or difficulty breathing, you pass out, or have any pain that radiates into your arms, jaw, or back. Please also return if you have any additional symptoms that are concerning to you. Forms: Elevated Blood Pressure, Return to Work
--- NOTE | 2018-09-18 19:07 | RADIOLOGY REPORT (SQ) ---
EXAM DESCRIPTION: CT HEAD WITHOUT COMPLETED DATE/TIME: 09/18/2018 6:48 pm REASON FOR STUDY: headache parathesia COMPARISON: None. TECHNIQUE: Axial images acquired through the brain without intravenous contrast. Images reviewed wit h bone, brain and subdural windows. Images stored on PACS. All CT scanners at this facility use dose modulation, iterative reconstruction, and/or weight based d osing when appropriate to reduce radiation dose to as low as reasonably achievable (ALARA). [facility]: Dose Right [facility]: CareDose [facility]: Dose Right [facility]: Teradose 4D [facility]: true[x] Media RADIATION DOSE: CT Rad equipment meets quality standard of care and radiation dose reduction techniq ues were employed. CTDIvol: 53.2 mGy. DLP: 911 mGy-cm.. LIMITATIONS: None. FINDINGS: VENTRICLES: Normal size and contour. CEREBRUM: No masses. No hemorrhage. No midline shift. Age appropriate white matter. No evidence for a cute infarction. CEREBELLUM: No masses. No hemorrhage. No alteration of density. No evidence for acute infarction. EXTRA-AXIAL SPACES: No fluid collections. ORBITS AND GLOBE: No intra- or extraconal masses. Normal contour of globe without masses. CALVARIUM: No fracture. PARANASAL SINUSES: No fluid or mucosal thickening. SOFT TISSUES: No mass or hematoma. OTHER: No other significant finding. IMPRESSION: NO ACUTE INTRACRANIAL FINDINGS. EVIDENCE OF ACUTE STROKE: NO. TECHNICAL DOCUMENTATION: JOB ID: [id number] [place]-72 Quality ID # 436: Final reports with documentation of one or more dose reduction techniques (e.g., Au tomated exposure control, adjustment of the mA and/or kV according to patient size, use of iterative reconstruction technique) 2010 [employer]- All Rights Reserved Reading location - IP/workstation name: [email or web address]
--- NOTE | 2018-09-18 19:10 | RADIOLOGY REPORT (SQ) ---
EXAM DESCRIPTION: CTA CHEST COMPLETED DATE/TIME: 09/18/2018 6:48 pm REASON FOR STUDY: sob COMPARISON: None. TECHNIQUE: CT scan of the chest performed using helical scanning technique with dynamic intravenous contrast injection. Images reviewed with lung, soft tissue and bone windows. Reconstructed coronal and sagittal MPR images reviewed. Additional 3 dimensional post-processing performed to develop Maximal Intensity Projection images (IL P). All images stored on PACS. All CT scanners at this facility use dose modulation, iterative reconstruction, and/or weight based d osing when appropriate to reduce radiation dose to as low as reasonably achievable (ALARA). [facility]: Dose Right [facility]: CareDose [facility]: Dose Right [facility]: Teradose 4D [facility]: [employer] CONTRAST TYPE AND DOSE: contrast/concentration: Isovue 350.00 mg/ml; Total Contrast Delivered: 53.0 ml; Total Saline Delivered: 78.0 ml Contrast bolus adequate for pulmonary arteries and aorta. RENAL FUNCTION: GFR > 60. RADIATION DOSE: CT Rad equipment meets quality standard of care and radiation dose reduction techniq ues were employed. CTDIvol: 6.6 - 29.8 mGy. DLP: 1044 mGy-cm. . LIMITATIONS: None. FINDINGS: LUNGS AND PLEURA: No masses, infiltrates, or pneumothorax. No pleural effusions or pleura l calcifications. AORTA AND GREAT VESSELS: No aneurysm. Contrast bolus not optimized for the aorta. HEART: No pericardial effusion. No significant coronary artery calcifications. PULMONARY ARTERIES: No emboli visualized in the main pulmonary arteries or the segmental branches. HILAR AND MEDIASTINAL STRUCTURES: No identified masses or abnormal nodes. HARDWARE: None in the chest. UPPER ABDOMEN: No significant findings. Limited exam. THYROID AND OTHER SOFT TISSUES: No masses. No adenopathy. BONES: No acute or significant finding. 3D MIPS: Confirm above findings. OTHER: No other significant finding. IMPRESSION: No acute findings. No emboli visualized in the main pulmonary arteries or the segmental branches. COMMENT: Quality ID # [id number]: Final reports with documentation of one or more dose reduction techniques (e.g., Automated exposure control, adjustment of the mA and/or kV according to patient size, use of iterative reconstruction technique) TECHNICAL DOCUMENTATION: JOB ID: [id number] [place]-72 2010 [employer]- All Rights Reserved Reading location - IP/workstation name: [email or web address]
[2018-09-18 20:13] VITALS: BP 137/76
== END 2018-09-18 20:21 | disposition home or self-care (01) ==
LOC: ER 12:03
DX: R20.2 Paresthesia of skin (principal); R07.9 Chest pain, unspecified; R19.7 Diarrhea, unspecified; R06.00 Dyspnea, unspecified; R51 Headache; R11.0 Nausea; I10 Essential (primary) hypertension; Z88.0 Allergy status to penicillin
CPT/HCPCS: 93005; 99285; 96374; 96375; 36415; 85025; 80053; 84484; 83880; 71046; 70450; 71275; 93010; J2270; J2405

== ENCOUNTER 2018-11-24 12:11 | Emergency (ER) | payer BC ==
[2018-11-24] MEDS ORDERED: ASPIRIN 81 MG TABLET, CHEWABLE PO ONE (12:32)
[2018-11-24] MEDS ORDERED: ONDANSETRON 4 MG TAB.RAPDIS PO ONE (12:33)
--- NOTE | 2018-11-24 12:34 | ER Document Report ---
ED Medical Screen (RME) - General Chief Complaint: Chest Pain Stated Complaint: CHEST PAIN Time Seen by Provider: 11/24/18 12:29 Mode of Arrival: Ambulatory Information source: Patient Notes: This 58-year-old female with history of diabetes TIAs presents today with chest pain that radiates to her back. Reports some nausea. Denies fever vomiting diarrhea. EKG shows sinus rhythm. Patient also has a history of SVTs which has had to be converted in the past with adenosine. I have greeted and performed a rapid initial assessment of this patient. A comprehensive ED assessment and evaluation of the patient, analysis of test results and completion of the medical decision making process will be conducted by additional ED providers. Dictation of this chart was performed using voice recognition software; therefore, there may be some unintended grammatical errors. TRAVEL OUTSIDE OF THE [place] IN LAST 30 DAYS: No - Related Data Allergies/Adverse Reactions: Penicillins Allergy (Severe, Verified 11/24/18 12:30) shock metformin Allergy (Verified 11/24/18 12:30) Past Medical History - Social History Chew tobacco use (# tins/day): No Frequency of alcohol use: None Drug Abuse: None - Past Medical History Cardiac Medical History: Reports: Hx Hypercholesterolemia, Hx Hypertension Denies: Hx Atrial Fibrillation, Hx Congestive Heart Failure, Hx Coronary Artery Disease, Hx DVT, Hx Heart Attack, Hx Pulmonary Embolism Pulmonary Medical History: Denies: Hx Asthma, Hx Bronchitis, Hx COPD, Hx Pneumonia, Hx Sleep Apnea Neurological Medical History: Denies: Hx Cerebrovascular Accident, Hx Seizures Endocrine Medical History: Reports: Hx Diabetes Mellitus Type 1, Hx Diabetes Mellitus Type 2. Denies: Hx Hyperthyroidism, Hx Hypothyroidism Renal/ Medical History: Denies: Hx Peritoneal Dialysis GI Medical History: Denies: Hx Cirrhosis, Hx Gastroesophageal Reflux Disease, Hx Hepatitis Musculoskeltal Medical History: Reports Hx Arthritis Psychiatric Medical History: Reports: Hx Depression, Hx Post Traumatic Stress Disorder Infectious Medical History: Denies: Hx Hepatitis Past Surgical History: Reports: Hx Dilation and Curettage, Hx Tubal Ligation, Other - Mesh bladder repair. Denies: Hx Pacemaker - Immunizations Hx Diphtheria, Pertussis, Tetanus Vaccination: Yes Physical Exam - Vital signs Vitals: Temp Pulse Resp BP Pulse Ox 98.0 F 81 18 127/87 H 97 11/24/18 12:21 11/24/18 12:21 11/24/18 12:21 11/24/18 12:21 11/24/18 12:21 Course - Vital Signs Vital signs: Temp Pulse Resp BP Pulse Ox 98.0 F 81 18 127/87 H 97 11/24/18 12:21 11/24/18 12:21 11/24/18 12:21 11/24/18 12:21 11/24/18 12:21
[2018-11-24 13:25] LABS: ABSOLUTE BASOPHILS # (AUTO) 0.1 10^3/uL (0.0-0.2); ABSOLUTE EOSINOPHILS # (AUTO) 0.2 10^3/uL (0.0-0.6); ABSOLUTE LYMPHOCYTES (AUTO) 3.6 10^3/uL (0.5-4.7); ABSOLUTE MONOCYTES (AUTO) 0.3 10^3/uL (0.1-1.4); ABSOLUTE NEUT (AUTO) 2.2 10^3/uL (1.7-8.2); BASOPHILS % (AUTO) 1.4 % (0-2); HEMATOCRIT 38.5 % (36.0-47.0); HEMOGLOBIN 12.6 g/dL (12.0-15.5); LYMPHOCYTES % (AUTO) 55.6 % (13-45); MEAN CORPUSCULAR HEMOGLOBIN 27.3 pg (27.0-33.4); MEAN CORPUSCULAR HGB CONC 32.8 g/dL (32.0-36.0); MEAN CORPUSCULAR VOLUME 83 fl (80-97); MONOCYTES % (AUTO) 5.1 % (3-13); PLATELET COUNT 462 10^3/uL (150-450); RED BLOOD COUNT 4.63 10^6/uL (3.72-5.28); RED CELL DISTRIBUTION WIDTH 13.7 % (11.5-14.0); SEGMENTED NEUTROPHILS % (AUTO) 34.9 % (42-78); TOTAL CELLS COUNTED % (AUTO) 100 %; WHITE BLOOD COUNT 6.4 10^3/uL (4.0-10.5)
[2018-11-24 13:40] LABS: ALBUMIN 4.6 g/dL (3.5-5.0); ALKALINE PHOSPHATASE 125 U/L (38-126); ANION GAP 8 (5-19); ASPARTATE AMINO TRANSFERASE 24 U/L (14-36); BILIRUBIN,DIRECT 0.1 mg/dL (0.0-0.4); BILIRUBIN,TOTAL 0.4 mg/dL (0.2-1.3); BLOOD UREA NITROGEN 15 mg/dL (7-20); CARBON DIOXIDE 28 mmol/L (22-30); CHLORIDE 104 mmol/L (98-107); CREATINE KINASE 256 U/L (30-135); GLUCOSE 83 mg/dL (75-110); POTASSIUM 4.4 mmol/L (3.6-5.0); TOTAL PROTEIN 7.9 g/dL (6.3-8.2)
--- NOTE | 2018-11-24 13:41 | RADIOLOGY REPORT (SQ) ---
EXAM DESCRIPTION: CHEST 2 VIEWS COMPLETED DATE/TIME: 11/24/2018 1:30 pm REASON FOR STUDY: co COMPARISON: PA and lateral views of the chest from 09/18/2018. EXAM PARAMETERS: NUMBER OF VIEWS: two views TECHNIQUE: Digital Frontal and Lateral radiographic views of the chest acquired. RADIATION DOSE: NA LIMITATIONS: none FINDINGS: LUNGS AND PLEURA: No consolidation, pleural effusion or pneumothorax. MEDIASTINUM AND HILAR STRUCTURES: No mediastinal hilar contour abnormality. HEART AND VASCULAR STRUCTURES: The cardiac silhouette and pulmonary vasculature are within normal tesfaye its. BONES: No acute findings. HARDWARE: None. OTHER: No other finding. IMPRESSION: No acute cardiopulmonary process. TECHNICAL DOCUMENTATION: JOB ID: [id number] [employer]- All Rights Reserved Reading location - IP/workstation name: [email or web address]
[2018-11-24 13:45] LABS: INTERNATIONAL RATION (INR) 0.92; PROTHROMBIN TIME 12.4 SEC (11.4-15.4)
[2018-11-24 13:46] LABS: PARTIAL THROMBOPLASTIN TIME 28.4 SEC (23.5-35.8)
[2018-11-24 13:52] LABS: CREATINE KINASE MB 2.51 ng/mL (<4.55)
[2018-11-24 14:02] LABS: TROPONIN I < 0.012 ng/mL
--- NOTE | 2018-11-24 16:34 | ER Document Report ---
ED General - General Chief Complaint: Chest Pain Stated Complaint: CHEST PAIN Time Seen by Provider: 11/24/18 12:29 Primary Care Provider: SHAHRIAR SCHAEFER MD [ACTIVE STAFF] - Follow up as needed BACILIO MCCONNELL MD [Primary Care Provider] - 11/26/18 Mode of Arrival: Ambulatory TRAVEL OUTSIDE OF THE [place] IN LAST 30 DAYS: No - HPI Notes: Patient is a 58-year-old female with a history of hypertension, hyperlipidemia, type 1 diabetes, degenerative disc disease, TIA, SVT who presents complaining of lower sternal chest pressure that is been present since 10 or 11 AM this morning, but has improved on its own since then. Patient states that she will feel some pain to her mid back. She is not aware of anything that worsens or improves her symptoms. She is able to ambulate without any dyspnea on exertion. She is able to eat and drink without difficulty. She is urinating normally and having normal bowel movements. Denies any prolonged immobilization, distance travel, recent surgery/trauma, personal cancer history, hormone use, smoking, or previous DVT/PE. Denies any headache, fever, neck pain, URI, sore throat, palpitations, syncope, cough, shortness of breath, wheeze, dyspnea, abdominal pain, nausea/vomiting/diarrhea, urinary retention, dysuria, hematuria, or rash. - Related Data Allergies/Adverse Reactions: Penicillins Allergy (Severe, Verified 11/24/18 12:30) shock metformin Allergy (Verified 11/24/18 12:30) Past Medical History - General Information source: Patient - Social History Smoking Status: Never Smoker Chew tobacco use (# tins/day): No Frequency of alcohol use: None Drug Abuse: None Family History: Reviewed & Not Pertinent Patient has suicidal ideation: No Patient has homicidal ideation: No - Past Medical History Cardiac Medical History: Reports: Hx Hypercholesterolemia, Hx Hypertension Denies: Hx Atrial Fibrillation, Hx Congestive Heart Failure, Hx Coronary Artery Disease, Hx DVT, Hx Heart Attack, Hx Pulmonary Embolism Pulmonary Medical History: Denies: Hx Asthma, Hx Bronchitis, Hx COPD, Hx Pneumonia, Hx Sleep Apnea Neurological Medical History: Denies: Hx Cerebrovascular Accident, Hx Seizures Endocrine Medical History: Reports: Hx Diabetes Mellitus Type 1, Hx Diabetes Mellitus Type 2. Denies: Hx Hyperthyroidism, Hx Hypothyroidism Renal/ Medical History: Denies: Hx Peritoneal Dialysis GI Medical History: Denies: Hx Cirrhosis, Hx Gastroesophageal Reflux Disease, Hx Hepatitis Musculoskeletal Medical History: Reports Hx Arthritis Psychiatric Medical History: Reports: Hx Depression, Hx Post Traumatic Stress Disorder Infectious Medical History: Denies: Hx Hepatitis Past Surgical History: Reports: Hx Dilation and Curettage, Hx Tubal Ligation, Other - Mesh bladder repair. Denies: Hx Pacemaker - Immunizations Hx Diphtheria, Pertussis, Tetanus Vaccination: Yes Hx Pneumococcal Vaccination: 12/01/09 Review of Systems - Review of Systems -: Yes All other systems reviewed and negative Physical Exam - Vital signs Vitals: Temp Pulse Resp BP Pulse Ox 98.0 F 81 18 127/87 H 97 11/24/18 12:21 11/24/18 12:21 11/24/18 12:21 11/24/18 12:21 11/24/18 12:21 - Notes Notes: PHYSICAL EXAMINATION: GENERAL: Well-appearing, well-nourished and in no acute distress. HEAD: Atraumatic, normocephalic. EYES: Pupils equal round and reactive to light, extraocular movements intact, sclera anicteric, conjunctiva are normal. ENT: Nares patent and without discharge. oropharynx clear without exudates. No tonsilar hypertrophy or erythema. Moist mucous membranes. NECK: Normal range of motion, supple without lymphadenopathy LUNGS: Breath sounds clear to auscultation bilaterally and equal. No wheezes rales or rhonchi. HEART: Regular rate and rhythm without murmurs, rubs, gallops. ABDOMEN: Soft, nontender, nondistended abdomen. No guarding, no rebound. Normal bowel sounds present. No CVA tenderness bilaterally. Musculoskeletal: FROM to passive/active. Strength 5+/5. Shante neg. No asymmetry to LE's. Extremities: No cyanosis, clubbing, or edema b/l. Peripheral pulses 2+. Capillary refill less than 3 seconds. NEUROLOGICAL: Normal speech, normal gait. PSYCH: Normal mood, normal affect. SKIN: Warm, Dry, normal turgor, no rashes or lesions noted. Course - Re-evaluation Re-evalutation: 11/24/18 18:[address] So who is in agreement with dispo/plan: Patient is an afebrile, well-hydrated 58yo female who presents to the ED with atypical chest pain, unspecified. Vitals are acceptable without any significant tachycardia, tachypnea, or hypoxia. PE is otherwise unremarkable. Patient is nontoxic-appearing and is tolerating p.o. without any difficulties. GI cocktail improved symptoms. CBC, CMP, EKGx2/cardiac enzymes 2, chest x-ray are all unremarkable for any acute pathology. Patient has a heart score of 3 and Wells score of 0. Patient does not have any dyspnea or shortness of breath. Patient's presentation and symptomatology creates low suspicion for ACS, PE, pne umothorax, pericarditis, dissection, respiratory compromise, severe dehydration, sepsis, meningitis, or other systemic emergent condition at this time. Patient is aware that this condition can change from initial presentation and she needs to monitor symptoms closely and seek medical attention for any acute changes. Pt is feeling better and would like to go home. Recommend conservative measures for symptoms. Recheck with your PCM in 2-3 days. Consider consult with Cardiology. Return to the ED with any worsening/concerning symptoms otherwise as reviewed in discharge. Patient is in agreement. - Vital Signs Vital signs: Temp Pulse Resp BP Pulse Ox 98.0 F 81 16 114/73 100 11/24/18 12:21 11/24/18 12:21 11/24/18 17:01 11/24/18 17:00 11/24/18 17:01 - Laboratory Result Diagrams: 11/24/18 13:08 11/24/18 13:08 Laboratory results interpreted by me: 11/24/18 11/24/18 11/24/18 13:08 13:08 16:25 Plt Count 462 H Lymph % (Auto) 55.6 H Seg Neutrophils % 34.9 L POC Glucose 62 L Creatine Kinase 256 H Discharge - Discharge Clinical Impression: Atypical chest pain Condition: Stable Disposition: HOME, SELF-CARE Instructions: Chest Pain of Unclear Cause ([facility]) Additional Instructions: Maintain adequate fluid and food intake Take home medications as directed healthy diet Monitor blood pressure daily and keep a log Monitor symptoms for any acute changes Recheck with your PCM in 2-3 days Consider a follow-up with cardiology Return to the ED with any worsening symptoms and/or development of fever, headache, chest pain, palpitations, syncope, shortness of breath, trouble breathing, abdominal pain, n/v/d, blood in stool/urine, loss of control of bow el/bladder, urinary retention, muscle weakness/paralysis, numbness/tingling, or other worsening symptoms that are concerning to you. Prescriptions: Sucralfate [Carafate] 1 gm PO BID #100 ml Omeprazole 20 mg PO DAILY #30 tablet.dr Referrals: BACILIO MCCONNELL MD [Primary Care Provider] - 11/26/18 SHAHRIAR SCHAEFER MD [ACTIVE STAFF] - Follow up as needed
[2018-11-24] MEDS ORDERED: METOCLOPRAMIDE HCL ORAL SOLN 10 MG/10 ML UDCUP PO ONE (18:08)
[2018-11-24] MEDS ORDERED: MAG HYDROX/AL HYDROX/SIMETH SUSP 30 ML UDCUP PO ONE (18:08)
[2018-11-24] MEDS ORDERED: LIDOCAINE 2% VISCOUS SOLN 20 ML UDCUP PO ONE (18:08)
[2018-11-24 19:11] VITALS: BP 135/85
--- NOTE | 2018-11-25 11:32 | EKG REPORT ---
SEVERITY:- NORMAL ECG - SINUS RHYTHM : Confirmed by: Earl Bingham 25-Nov-2018 11:31:14
--- NOTE | 2018-11-25 11:32 | EKG REPORT ---
SEVERITY:- NORMAL ECG - SINUS RHYTHM : Confirmed by: Earl Bingham 25-Nov-2018 11:31:18
== END 2018-11-24 19:22 | disposition home or self-care (01) ==
LOC: ER 12:11
DX: R07.89 Other chest pain (principal); I10 Essential (primary) hypertension; E10.9 Type 1 diabetes mellitus without complications; M54.9 Dorsalgia, unspecified; Z88.0 Allergy status to penicillin; Z88.8 Allergy status to other drugs, medicaments and biological substances
CPT/HCPCS: 93005; 99285; 36415; 82553; 82962; 82550; 85025; 85610; 85730; 80053; 84484; 71046; 93010; S0119; J3490